=== PATIENT | male | born 1970 | race Caucasian/White ===

== ENCOUNTER → 2018-02-07 | Emergency (ER) | payer MEDICAID | END | disposition home or self-care (01) | LOC: FTE 12:46 | DX: M72.2 Plantar fascial fibromatosis (principal); F17.210 Nicotine dependence, cigarettes, uncomplicated | CPT/HCPCS: 99282; Z7502 ==

== ENCOUNTER 2018-06-05 08:50 | Emergency (ER) | payer SELFPAY, MEDICAID ==
[2018-06-05] MEDS: DEXAMETHASONE 10 MG/ML 1 ML INJ IM (09:32)
[2018-06-05] MEDS: KETOROLAC 60 MG INJ IM (09:33)
== END 2018-06-05 10:20 | disposition home or self-care (01) ==
LOC: FTE 08:50
DX: M79.671 Pain in right foot (principal); M79.672 Pain in left foot; Z87.891 Personal history of nicotine dependence
CPT/HCPCS: 96372; 99284-25; J1100